=== PATIENT | female | born 1985 | race Hispanic/Latino ===

== ENCOUNTER 2017-04-09 10:31 | Outpatient (CLI) | payer OTHER ==
--- NOTE | 2017-04-09 12:30 | ULT ---
OBSTETRIC SONOGRAM: HISTORY: Gestational diabetes. High-risk . Third-trimester . FINDINGS: Multiple transabdominal sonographic views of the gravid uterus show a single intrauterine gestation in cephalic presentation. The cervix is closed and 5.6 cm in length. Amniotic fluid is within norm al limits. Advanced age limits anatomic detail. Heart motion is demonstrated at 137 q.p.m. Good color and spectral Doppler flow are present within the umbilical artery. Resistive index is 0. 6. Near the placenta, resistive index is 0.6 with an S/D ratio of 2.6. Measurements are as follows: Biparietal diameter 32 weeks 5 days Head circumference 34 weeks 3 days Abdominal circumference 35 weeks 4 days Femur length 33 weeks 6 days Hadlock percentile=39%. Grade II placenta is anterior. HC/AC ratio=1.1. FL/BPD ratio=88%. FL/HC ratio=24.5. FL/AC ratio=24.0. IMPRESSION: Single viable intrauterine gestation with estimated gestational age based on today's sonogram of 34 weeks 1 day. POS: [facility]
== END 2017-04-09 10:32 | disposition home or self-care (01) ==
LOC: ULT 10:31
PROVIDERS: ATTEND Family Medicine
DX: O24.410 Gestational diabetes mellitus in pregnancy, diet controlled (principal); Z3A.34 34 weeks gestation of pregnancy
CPT/HCPCS: 76805

== ENCOUNTER 2017-04-30 10:48 | Outpatient (CLI) | payer OTHER ==
--- NOTE | 2017-04-30 15:50 | ULT ---
OB ULTRASOUND: Date: 04/30/17 HISTORY: Gestational diabetes. FINDINGS: A single live intrauterine gestation is seen with measurements corresponding to an estimated gestati onal age of 36 weeks/5 days and NICOLAS at 05/23/17. The estimated weight measures 3529 gm (7 lbs, 13 oz). measurements are as follows: BPD: 8.67 cm, 35 weeks/0 days HC: 32.44 cm, 36 weeks/5 days AC: 36.49 cm, 40 weeks/3 days FL: 7.25 cm, 37 weeks/1 day heart rate measures 139 beats/minute. ASHLEY measures 19 cm. Placenta is posteriorly located without evidence of placenta previa. Cervical length measures 5.9 cm. Mild bilateral pelviectasis is seen in the kidneys. IMPRESSION: Single live intrauterine gestation with estimated gestational age of 36 weeks/5 days and NICOLAS at 05/09 11/22. POS: [facility]
== END 2017-04-30 10:49 | disposition home or self-care (01) ==
LOC: ULT 10:48
PROVIDERS: ATTEND Family Medicine
DX: O24.410 Gestational diabetes mellitus in pregnancy, diet controlled (principal); Z3A.36 36 weeks gestation of pregnancy
CPT/HCPCS: 76816

== ENCOUNTER 2018-11-15 13:39 | Outpatient (CLI) | payer MEDICAID ==
--- NOTE | 2018-11-15 15:24 | ULT ---
COMPLETE OB ULTRASOUND AT GREATER THAN FOURTEEN WEEKS: HISTORY: anatomy. FINDINGS: A single viable intrauterine fetus is noted in a breech presentation. The placenta is posterior. Fe nelida heart rate is 126 beats per minute. Amniotic fluid is within normal limits. Somewhat low-lying posterior placenta but without definitive placenta previa at this time. Cervical length appears with in normal limits. ANATOMY: brain, four-chamber heart, three-vessel cord, stomach, bladder, kidney, and extremity regions. Spine is somewhat less than optimally imaged. BIOMETRY: BPD: 6.5 cm (26 weeks 1 day). HEAD CIRCUMFERENCE: 24.9 cm (27 weeks 1 day). ABDOMINAL CIRCUMFERENCE: 21.7 cm (26 weeks 2 days). FEMUR LENGTH: 4.95 cm (26 weeks 5 days). NICOLAS: 02/17/2019 EFW: 937 grams IMPRESSION: Single viable intrauterine fetus at 26 weeks 4 days with an estimated date of delivery of 02/17/2019 and an estimated weight of 937 g. No significant abnormality demonstrated. Somewhat less than optimal imaging of the spine. POS: [facility]
== END 2018-11-15 13:40 | disposition home or self-care (01) ==
LOC: BICULT 13:39
PROVIDERS: ATTEND Family Medicine
DX: O09.892 Supervision of other high risk pregnancies, second trimester (principal); Z3A.26 26 weeks gestation of pregnancy
CPT/HCPCS: 76805

== ENCOUNTER 2018-12-11 07:39 | Outpatient (CLI) | payer OTHER ==
--- NOTE | 2018-12-11 09:58 | ULT ---
RIGHT UPPER QUADRANT ABDOMINAL ULTRASOUND: HISTORY: Right upper quadrant abdominal pain. TECHNIQUE: Multiplanar, ramirez scale, and color Doppler images were obtained in a right upper quadrant abdominal u ltrasound. FINDINGS: The liver is heterogeneous in appearance. There are areas of [id number] echogenicity scattered th roughout the liver. These are nonspecific. No focal liver lesions or intrahepatic ductal dilatation are seen. The gallbladder is normal without stones, sludge, gallbladder wall thickening, or pericholecystic flu id. The common bile duct is normal measuring 4 mm. The visualized portions of the pancreas are unremarkable. The right kidney is normal in echogenicity without hydronephrosis or calculus and measures 13.7 cm in length. The patient is with a live intrauterine with heart rate of 153 b.p.m. IMPRESSION: Heterogeneous appearance of the liver with areas of increased echogenicity. This is nonspecific. Th is could represent fatty infiltration that is not confluent. Alternatively, this could represent hep atitis. Correlate with LFTs. POS: [facility]
== END 2018-12-11 07:40 | disposition home or self-care (01) ==
LOC: BICULT 07:39
PROVIDERS: ATTEND Family Medicine
DX: R10.11 Right upper quadrant pain (principal); R93.2 Abnormal findings on diagnostic imaging of liver and biliary tract
CPT/HCPCS: 76705

== ENCOUNTER 2019-01-19 09:15 | Inpatient (IN) | payer MEDICAID, OTHER, SELFPAY ==
[2019-01-19 09:56] VITALS: BMI 38.0
[2019-01-19] MEDS ORDERED: hydrALAZINE 20 MG/ML VIAL SLOW IVP PRN ×2 (13:58→18:07)
[2019-01-19] MEDS ORDERED: Ibuprofen 800 MG TAB PO PRN (13:58)
[2019-01-19] MEDS ORDERED: HYDROcodone/Acetaminophen 5/325 mg Tablet PO PRN (13:58)
[2019-01-19] MEDS ORDERED: Ondansetron PF 4 MG/2 ML Vial IVP PRN (13:58)
[2019-01-19] MEDS ORDERED: Lidocaine 1% (PF) 30 ML VIAL SC PRN (13:58)
[2019-01-19] MEDS ORDERED: Butorphanol Tartrate 1 MG/ML VIAL ONE (14:01)
[2019-01-19 14:22] LABS: Hemoglobin 13.9 g/dL (12.0-16.0); Mean Corpuscular HGB CONC 34.4 g/dL (32.0-36.0); Mean Corpuscular Hemoglobin 30.7 pg (27.0-31.0); Mean Corpuscular Volume 89.3 fL (78.0-98.0); Platelet Count 236 thou/uL (130-400); RBC Distribution Width 13.9 % (11.5-14.5); Red Blood Cell (RBC) Count 4.54 mill/uL (4.20-5.40); White Blood Cell (WBC) Count 9.6 thou/uL (4.8-10.8)
[2019-01-19 15:07] LABS: HBSAg Index 0.27 S/CO (0-0.99); HIV (1/2) Antibody/Antigen Non-Reactive (NonReactive); HIV 1/2 INDEX 0.05 S/CO (<1.00); Hep B Surf Ag Non-Reactive S/CO (NonReactive)
[2019-01-19 15:55] LABS: Syphilis Antibody Nonreactive (Nonreactive); Syphilis Antibody Index 0.05 S/CO (<1.00 Non-Reactive)
[2019-01-19] MEDS: NS / Oxytocin 40 units/1000ml 1,000 ML IV PRN ×2 (16:50→17:39)
[2019-01-19] MEDS ORDERED: Bisacodyl 10 MG SUPP PR PRN (18:07)
[2019-01-19] MEDS ORDERED: Milk Of Magnesia 30 ML UDCUP PO PRN (18:07)
[2019-01-19] MEDS ORDERED: NS / Oxytocin 40 units/1000ml 1,000 ML IV SCH (18:07)
[2019-01-19] MEDS ORDERED: Lanolin Ointment 7 GM TUBE TOP PRN (18:07)
--- NOTE | 2019-01-19 21:12 | OP ---
DATE OF PROCEDURE: 01/19/2019 The patient is a 33-year-old multiparous female, who delivered a female infant on 01/19/2019 at 1644 hours by an uncomplicated term spontaneous vaginal delivery. Gestational age 37 weeks and 3 days. Apgars are 9 and 9. Weight is unavailable at the time of dictation. Placenta delivered spontaneously following the delivery. Following spontaneous delivery of the placenta, Pitocin was infused. There were no lacerations. Quantitative blood loss 112 mL. DELIVERING PHYSICIAN: Tre Kang MD. COUNTS: Count was all correct. COMPLICATIONS: None. Mother and baby were stable in the immediate . Job ID: [id number]
[2019-01-19] MEDS: Docusate Calcium (SURFAK) 240 MG CAP PO SCH (21:28)
[2019-01-20] MEDS: Ibuprofen 800 MG TAB PO SCH ×4 (01:58→18:08)
[2019-01-20 05:55] LABS: #Eosinphils 0.1 thou/uL (0.0-0.7); #Lymphocytes 2.1 thou/uL (1.20-3.40); #Monocytes 0.8 thou/uL (0.11-0.59); #Neutrophils 5.7 thou/uL (1.40-6.50); %Basophils 0.2 % (0.0-1.0); %Eosinophils 0.8 % (0.0-10.0); %Lymphocytes 24.3 % (21.0-51.0); %Monocytes 8.9 % (0.0-10.0); %Neutrophils 65.8 % (42.0-75.0); Hemoglobin 12.3 g/dL (12.0-16.0); Mean Corpuscular Hemoglobin 32.4 pg (27.0-31.0); Mean Corpuscular Volume 90.1 fL (78.0-98.0); Mean Platelet Volume 8.4 fL (7.4-10.4); Platelet Count 198 thou/uL (130-400); RBC Distribution Width 13.5 % (11.5-14.5); White Blood Cell (WBC) Count 8.6 thou/uL (4.8-10.8)
[2019-01-20] MEDS ORDERED: Adacel (T-DAP) 0.5 ML SYRINGE IM ONE (09:00)
[2019-01-20] MEDS: Ferrous Sulfate 325 MG TAB PO SCH ×2 (09:26→18:58)
[2019-01-20] MEDS: Prenatal Vitamin 1 TAB PO SCH (09:51)
[2019-01-20] MEDS: Docusate Calcium (SURFAK) 240 MG CAP PO SCH (09:51)
--- NOTE | 2019-01-20 15:44 | DIS ---
DATE OF ADMISSION: 01/19/2019 DATE OF DISCHARGE: 01/20/2019 ADMITTING DIAGNOSES: 1. Intrauterine at 37 weeks. 2. Labor. DISCHARGE DIAGNOSES: 1. Intrauterine at 37 weeks. 2. Labor. PROCEDURE PERFORMED: Term spontaneous vaginal delivery. CONSULTATIONS: None. HOSPITAL COURSE: The patient is a 33-year-old multiparous female, who presented to Labor and Delivery in active labor at 37 weeks' gestation and proceeded to have a spontaneous term vaginal delivery without complication. The patient is now day 1 and has no complaints this morning. She reports she is tolerating p.o., voiding on her own, having decreased lochia and good pain control. PHYSICAL EXAMINATION: VITAL SIGNS: Blood pressure today is 122/56, temperature 98.1, pulse is 78, and respiratory rate of 18. GENERAL: She appears to be in no acute distress. She is alert and oriented, cooperative and pleasant to interact with. ABDOMEN: Fundus is firm at the umbilicus. EXTREMITIES: Nontender, nonedematous. LABORATORY DATA: Postdelivery hemoglobin is 12.3, hematocrit of 34.2, and platelets of 198,000. DISCHARGE INSTRUCTIONS: The patient will be discharged to home with ibuprofen to be taken as needed for pain control. She has instructions to follow up with her primary OB, Dr. Coburn, in 6 weeks. She will need to seek medical attention sooner if she experiences fever, increasing pain, or bleeding. Job ID: [id number]
[2019-01-21] MEDS: Ibuprofen 800 MG TAB PO SCH ×2 (01:40→02:08)
[2019-01-21] MEDS: Docusate Calcium (SURFAK) 240 MG CAP PO SCH ×2 (02:08→08:27)
[2019-01-21 08:07] VITALS: BP 123/73; TEMP 97.6
[2019-01-21] MEDS: Prenatal Vitamin 1 TAB PO SCH (08:26)
[2019-01-21] MEDS: Ferrous Sulfate 325 MG TAB PO SCH (08:27)
== END 2019-01-21 11:00 | disposition home or self-care (01) | DRG 807 ==
LOC: L&D/OP 09:15 → L&D 13:47 → 3SW 20:19
PROVIDERS: ADMIT Family Medicine; ATTEND Family Medicine
PROC: 10E0XZZ Delivery of Products of Conception, External Approach (ICD-10-PCS; principal; 2019-01-19)
DX: O80 Encounter for full-term uncomplicated delivery (principal); Z37.0 Single live birth; Z3A.37 37 weeks gestation of pregnancy
CPT/HCPCS: 36415; 85025; 85027; 86780; 86850; 86900; 86901; 87340; 87389; 99285; J0595; J2001

== ENCOUNTER 2019-03-12 18:08 | Inpatient (IN) | payer MEDICAID, SELFPAY ==
[2019-03-12 18:43] LABS: Bilirubin Negative (Negative); Blood, Urine Negative (Negative); Clarity Clear (Clear); Glucose, Urine (Dipstick) Normal (Negative); Leukocyte Negative Leu/uL (Negative); Nitrite Negative (Negative); Protein, Urine (Dipstick) Negative (Neg-Trace); Urobilinogen Normal mg/dL (Less than 2)
[2019-03-12 18:45] LABS: Pregnancy Test - Urine (BHCG) Negative (Negative); Pregu Control Background? CLEAR/WHITE (CLR/WHITE); Pregu Control Bar Appear? YES (CONTROL BAR); Specific Gravity 1.014 (1.002-1.036)
[2019-03-12 18:53] LABS: #Eosinphils 0.2 thou/uL (0.0-0.7); #Lymphocytes 2.9 thou/uL (1.20-3.40); #Monocytes 0.7 thou/uL (0.11-0.59); #Neutrophils 7.8 thou/uL (1.40-6.50); %Basophils 0.1 % (0.0-1.0); %Eosinophils 1.4 % (0.0-10.0); %Lymphocytes 24.8 % (21.0-51.0); %Neutrophils 67.8 % (42.0-75.0); Hemoglobin 15.2 g/dL (12.0-16.0); Mean Corpuscular HGB CONC 34.7 g/dL (32.0-36.0); Mean Corpuscular Hemoglobin 30.2 pg (27.0-31.0); Platelet Count 343 thou/uL (130-400); RBC Distribution Width 12.9 % (11.5-14.5); Red Blood Cell (RBC) Count 5.04 mill/uL (4.20-5.40); White Blood Cell (WBC) Count 11.6 thou/uL (4.8-10.8)
[2019-03-12 19:19] LABS: ALT (SGPT) 51 U/L (8-55); AST (SGOT) 34 U/L (5-34); Albumin 4.5 g/dL (3.5-5.0); Alkaline Phosphatase 157 U/L (40-150); Anion Gap 14 mmol/L (10-20); BUN (Urea Nitrogen) 16 mg/dL (7.0-18.7); Bilirubin, Total 0.6 mg/dL (0.2-1.2); Calc. Creatinine Clearance 0 mL/min (70-130); Calcium 9.8 mg/dL (7.8-10.44); Carbon Dioxide 22 mmol/L (22-29); Chloride 105 mmol/L (98-107); Estimated GFR-MDRD Greater than 90; Glucose 92 mg/dL (70-105); Lipase 32 U/L (8-78); Protein, Total 8.5 g/dL (6.0-8.3); Sodium 137 mmol/L (136-145)
--- NOTE | 2019-03-12 19:34 | ULT ---
RIGHT UPPER QUADRANT ULTRASOUND: 03/12/19 INDICATION; History of right upper quadrant pain. COMPARISON: Prior exam dated 12/11/18. FINDINGS: There are small gallstones within the gallbladder. The gallbladder is mild to moderately distended. T here is mild gallbladder wall thickening. No pericholecystic fluid is evident. There is report of a s onographic Alvarado's sign. The common bile duct is dilated measuring up to 1 cm. There is coarse echogenicity of the liver likel y related to underlying chronic liver disease. There is hepatopetal flow within the portal vein. Panc reas is largely obscured. Right kidney measures 11.3 cm without evidence of hydronephrosis. IMPRESSION: 1. Cholelithiasis with gallbladder wall thickening and report of a positive sonographic Alvarado's sign is suspicious for acute calculus cholecystitis. 2. Common bile duct is dilated measuring 1 cm. Choledocholithiasis is not excluded. 3. Coarse echotexture of the liver is suspicious for underlying chronic liver disease. POS: [facility]
[2019-03-12] MEDS ORDERED: Ondansetron PF 4 MG/2 ML Vial ONE (19:53)
[2019-03-12] MEDS ORDERED: Morphine 4 MG/ML VIAL ONE (19:53)
[2019-03-12] MEDS ORDERED: Ondansetron ODT 4 MG TAB SL PRN (21:57)
[2019-03-12] MEDS ORDERED: Ondansetron PF 4 MG/2 ML Vial IVP PRN (21:57)
[2019-03-12] MEDS ORDERED: Morphine 4 MG/ML VIAL SLOW IVP PRN (21:59)
[2019-03-12] MEDS: Lactated Ringer's 1,000 ML IV SCH (23:24)
[2019-03-13 00:57] VITALS: BMI 31.8
[2019-03-13] MEDS ORDERED: Morphine 4 MG/ML VIAL SLOW IVP PRN ×2 (07:09→11:37)
[2019-03-13] MEDS ORDERED: Ondansetron PF 4 MG/2 ML Vial IVP PRN ×2 (07:09→11:37)
[2019-03-13] MEDS ORDERED: cefOXitin 2 GM in Sodium Chloride 0.9% 100 ML IVPB SCH ×2 (07:15→14:00)
[2019-03-13] MEDS: Sodium Chloride 0.9% 1,000 ML IV SCH ×2 (08:52→13:59)
[2019-03-13] MEDS: Lactated Ringer's 1,000 ML IV SCH (08:58)
[2019-03-13] MEDS ORDERED: cefOXitin 2 GM VIAL ONE (10:03)
[2019-03-13] MEDS ORDERED: Sodium Chloride 0.9% 100 ML ONE (10:04)
[2019-03-13] MEDS ORDERED: Bupivacaine/Epinephrine 0.25% 30 ML VIAL ONE (10:18)
[2019-03-13] MEDS ORDERED: Iothalamate Meglumine 60% 50 ML VIAL FS ONE (10:18)
[2019-03-13] MEDS ORDERED: Midazolam HCl 2 mg/2 ml Vial ONE (10:31)
[2019-03-13] MEDS ORDERED: Fentanyl 100 MCG/2 ML VIAL ONE ×3 (10:32→12:13)
[2019-03-13] MEDS ORDERED: HYDROcodone/Acetaminophen 10/325 mg Tablet PO PRN ×2 (11:37)
[2019-03-13] MEDS ORDERED: Mag-Al 1200 mg/1200 mg/30 ML UDCUP PO PRN (11:37)
[2019-03-13] MEDS ORDERED: Calcium Carbonate 500 MG ChewTAB PO PRN (11:37)
[2019-03-13] MEDS ORDERED: Morphine 2 MG/ML SYRINGE SLOW IVP PRN (11:37)
[2019-03-13] MEDS ORDERED: hydrALAZINE 20 MG/ML VIAL SLOW IVP PRN (11:37)
[2019-03-13] MEDS ORDERED: Promethazine HCl 25 MG/ML VIAL IM PRN (11:37)
[2019-03-13] MEDS ORDERED: Dextrose 50% Abboject 50 ML SYRINGE SLOW IVP PRN (11:37)
[2019-03-13] MEDS ORDERED: Dextrose 5% in Water 1,000 ML IV PRN (11:37)
--- NOTE | 2019-03-13 11:40 | RAD ---
EXAM: Cholangiogram in surgery HISTORY: Cholelithiasis COMPARISON: None FINDINGS: Limited intraoperative fluoroscopic views were taken during a cholangiogram in surgery. The common bile duct is normal in caliber without filling defect. No leakage from the common bile duct. Contrast passes into the duodenum. No abnormality of the intrahepatic bile ducts. IMPRESSION: Unremarkable cholangiogram
[2019-03-13] MEDS ORDERED: D5 1/2 NS w/20 mEq KCL 1,000 ML IV SCH (11:45)
[2019-03-13 12:58] VITALS: TEMP 97.7
[2019-03-13] MEDS: Ketorolac Tromethamine 30 MG/ML VIAL IVP SCH ×2 (12:58→17:28)
--- NOTE | 2019-03-13 14:05 | HP ---
CHIEF COMPLAINT: Right upper quadrant abdominal pain. HISTORY OF PRESENT ILLNESS: The patient is a 33-year-old female, who has a 3-week history of right upper quadrant pain. She went to the emergency room in [place] about a week ago, where an ultrasound showed cholelithiasis. She felt better after medicine, but then last night it became much more severe, radiating to the back, associated with nausea, no vomiting. No fevers or chills. PAST MEDICAL HISTORY: Otherwise healthy. PAST SURGICAL HISTORY: None. ALLERGIES: NO KNOWN DRUG ALLERGIES. MEDICATIONS: No medications. SOCIAL HISTORY: She is , unemployed. No tobacco. No alcohol. FAMILY HISTORY: Diabetes, hyperlipidemia, hypertension, and breast cancer. PHYSICAL EXAMINATION: VITAL SIGNS: Temperature 97.6, pulse 64, and blood pressure 119/76. GENERAL: She is an obese female, in no apparent distress. HEENT: Unremarkable. LUNGS: Clear. HEART: Regular rate and rhythm. ABDOMEN: Soft, tender in the right upper quadrant. EXTREMITIES: Unremarkable. LABORATORY DATA: White count 11.6, H and H of 15 and 43, and platelet count 343. Electrolytes are fine. Alkaline phosphatase elevated at 157. LFTs otherwise unremarkable. Ultrasound shows gallstones with [id number] distention, mild wall thickening, and dilatation of the common bile duct to 1 cm. ASSESSMENT: Acute cholecystitis with possible choledocholithiasis. PLAN: Laparoscopic cholecystectomy with cholangiogram. CONSENT: I have discussed planned procedure as well as risk of bleeding, infection, injury to bile duct, injury to bowel, and need to open. She understands and gives informed consent. Job ID: [id number]
[2019-03-13 14:07] VITALS: BP 111/71
[2019-03-13] MEDS ORDERED: Famotidine 20 MG TAB PO SCH (21:00)
[2019-03-13] MEDS ORDERED: Famotidine/PF 20 mg/2ml Vial SLOW IVP SCH (21:00)
--- NOTE | 2019-03-14 05:25 | DIS ---
DATE OF ADMISSION: 03/12/2019 DATE OF DISCHARGE: 03/13/2019 DISCHARGE DIAGNOSIS: Acute cholecystitis with elevated liver functions. PROCEDURES DURING ADMISSION: Laparoscopic cholecystectomy with intraoperative cholangiogram. HOSPITAL COURSE: The patient was admitted, given IV fluids, IV antibiotics, taken to the operating room where she underwent a laparoscopic cholecystectomy. Postoperatively, she is doing well. Pain is controlled on p.o. medications. She is tolerating liquids well. Discharged home on hydrocodone and Zofran. She will follow up with me in 2 weeks. Job ID: [id number]
--- NOTE | 2019-03-14 08:04 | OP ---
DATE OF PROCEDURE: 03/13/2019 PREOPERATIVE DIAGNOSIS: Acute cholecystitis with elevated liver function. PROCEDURE PERFORMED: Laparoscopic cholecystectomy with intraoperative cholangiogram. INDICATIONS: A 33-year-old female who has had 2 episodes of severe biliary colic, the last 1 was last night, admitted to the hospital. Ultrasound showed cholelithiasis and enlarged common bile duct and elevated alkaline phosphatase. FINDINGS: She had a slightly thickened gallbladder wall. The cholangiogram showed free flow into the duodenum, normal intrahepatic ducts, no filling defects. DESCRIPTION OF PROCEDURE: After informed consent was obtained, the patient was taken to the operating room, given general endotracheal anesthesia, placed in supine position. Abdomen was prepped and draped in usual fashion. Local anesthesia infiltrated subcutaneously and deep. A subumbilical incision was performed. Subcu divided sharply. The fascia was grasped and 2 stay sutures of 0 Vicryl placed through the side of midline. Midline incised. Digital palpation revealed no local adhesions. A blunt 12-mm trocar inserted. Pneumoperitoneum was created to a pressure of 15 mmHg. A 0-degree laparoscope inserted under direct vision. Three 5-mm ports were placed subcostally. The gallbladder was grasped and advanced superiorly. Peritoneum lysed distally to expose the cystic artery and critical view. A clip was placed at the base of the gallbladder on the cystic duct. An incision was made in the cystic duct. An Arrow cholangiocatheter inserted. Intraoperative cholangiogram was performed utilizing fluoroscopy, showed free flow into the duodenum, no filling defects, normal intrahepatic ducts. The catheter removed. The duct triply ligated and divided. The artery triply ligated and divided. The gallbladder removed from its fossa utilizing electrocautery, removed from the abdomen through the umbilical port. Hemostasis was assured. The abdomen was irrigated. Irrigation fluid removed. Trocars and retractors removed. The fascia closed with interrupted 0 Vicryl suture and the skin closed with interrupted 4-0 Rapide. Dermabond applied. The patient tolerated the procedure well, transferred to Recovery in good condition. Sponge and needle count verified correct x2. Job ID: [id number]
[2019-03-14] MEDS ORDERED: Enoxaparin Sodium 40 MG/0.4 ML SYRINGE SC SCH (09:00)
== END 2019-03-13 18:22 | disposition home or self-care (01) | DRG 419 ==
LOC: ERS 18:08 → OBSVTOIN 20:48 → SURG A 20:48
PROVIDERS: ADMIT Surgery; ATTEND Surgery
PROC: 0FT44ZZ Resection of Gallbladder, Percutaneous Endoscopic Approach (ICD-10-PCS; principal; 2019-03-13)
PROC: BF100ZZ Fluoroscopy of Bile Ducts using High Osmolar Contrast (ICD-10-PCS; 2019-03-13)
DX: K81.0 Acute cholecystitis (principal); R79.89 Other specified abnormal findings of blood chemistry
CPT/HCPCS: 36415; 47532; 76705; 80053; 81003; 81025; 83690; 85025; 88304; J0694; J1885; J2250; J2270; J2405; J3010; J3490